=== PATIENT | male | born 1990 | race Two or more races ===

== ENCOUNTER 2017-10-09 12:45 | Emergency (ER) | payer MEDICAID, OTHER ==
[~2017-10-09] VITALS: Ht 180.3 cm; Wt 76.0 kg
[2017-10-09 13:12] VITALS: BP 121/86
[2017-10-09] MEDS ORDERED: CLINDAMYCIN 150 MG/ML, 6ML IM ONE (13:30)
[2017-10-09] MEDS ORDERED: CLINDAMYCIN 150 MG/ML, 6ML ONE (13:33)
== END 2017-10-09 14:23 | disposition home or self-care (01) ==
LOC: ED 14:05
DX: K02.9 Dental caries, unspecified (principal); F17.200 Nicotine dependence, unspecified, uncomplicated; Z88.0 Allergy status to penicillin
CPT/HCPCS: 96372; 99283